=== PATIENT | male | born 1970 | race African-American/Black ===

== ENCOUNTER 2019-05-11 18:15 | Emergency (ER) | payer SELFPAY ==
[~2019-05-11] VITALS: Ht 175.3 cm; Wt 90.9 kg
[2019-05-11] MEDS ORDERED: METHOCARBAMOL 500 MG TABLET PO ONE (21:45)
[2019-05-11] MEDS ORDERED: IBUPROFEN 800 MG TABLET PO ONE (21:45)
[2019-05-11] MEDS ORDERED: LIDOCAINE 5% TRANSDERMAL PATCH TD ONE (21:45)
[2019-05-11 22:26] VITALS: BP 148/85
== END 2019-05-11 22:27 | disposition home or self-care (01) ==
LOC: EMS 18:18
DX: S16.1XXA Strain of muscle, fascia and tendon at neck level, initial encounter (principal); S63.91XA Sprain of unspecified part of right wrist and hand, initial encounter; R51 Headache; V43.52XA Car driver injured in collision with other type car in traffic accident, initial encounter; Y93.89 Activity, other specified; Y92.89 Other specified places as the place of occurrence of the external cause; Y99.8 Other external cause status
CPT/HCPCS: 70450; 72125

== ENCOUNTER 2025-06-07 09:32 | Emergency (ER) | payer OTHER ==
[~2025-06-07] VITALS: Ht 170.2 cm; Wt 88.0 kg
[2025-06-07 09:44] VITALS: TEMP 97.9
[2025-06-07] MEDS: IBUPROFEN 400 MG TABLET PO ONE (10:05)
[2025-06-07] MEDS: ACETAMINOPHEN 500 MG TABLET PO ONE (10:06)
[2025-06-07] MEDS: LIDOCAINE 5% TRANSDERMAL PATCH TD ONE (10:07)
[2025-06-07 11:55] VITALS: BP 168/62; PULSE 89; RESP 18; O2SAT 97
[2025-06-07] MEDS ORDERED: METH-812 PO (13:43)
[2025-06-07] MEDS ORDERED: LIDO-57 TP (13:43)
== END 2025-06-07 14:36 | disposition home or self-care (01) ==
LOC: EMS 09:32
DX: S46.911A Strain of unspecified muscle, fascia and tendon at shoulder and upper arm level, right arm, initial encounter (principal); X50.9XXA Other and unspecified overexertion or strenuous movements or postures, initial encounter; Y93.89 Activity, other specified; Y92.89 Other specified places as the place of occurrence of the external cause; Y99.8 Other external cause status
CPT/HCPCS: 99284; 73030-TC; Z7502; Z7610